=== PATIENT | male | born 1945 | race Caucasian/White ===

== ENCOUNTER → 2023-12-29 | Emergency (ER) | payer OTHER ==
[~2023-12-29] MED LIST: NA CHLORIDE 0.9% 1,000 ML ONE
[2023-12-29 14:05] LABS: Absolute Lymphocytes (CBC) 2.7 K/uL (0.7-4.9); Lymphocytes % 29.7 % (15.3-44.8); MCV 91.1 fL (80-100); MPV 8.8 fL (7.6-11.3); Platelets 235 thou/uL (152-406); RBC Red Blood Cell Count 4.17 M/uL (4.33-5.43)
[2023-12-29 14:29] LABS: Albumin 3.9 g/dL (3.4-5.0); Bilirubin Direct 0.4 mg/dL (0-0.2); Bilirubin Indirect, Calculated 0.5 mg/dL (0.2-0.8); Bilirubin Total 0.9 mg/dL (0.2-1.0); Magnesium 1.8 mg/dL (1.6-2.4); Potassium 3.3 mEq/L (3.5-5.1); Protein, Total 7.6 g/dL (6.4-8.2); Troponin High Sensitivity 14.2 pg/mL (<58.9)
--- NOTE | 2023-12-29 14:34 | RAD REPORT ---
EXAM DESCRIPTION: RAD - Chest Single View - 12/29/2023 2:26 pm CLINICAL HISTORY: syncope Chest pain. COMPARISON: No comparisons FINDINGS: Portable technique limits examination quality. The lungs are grossly clear. The heart is normal in size. No displaced fractures. IMPRESSION: No acute intrathoracic process suspected.
--- NOTE | 2023-12-29 15:13 | EDPHYS ---
Physician Documentation [facility] Name: Pablo Michele Age: 78 yrs Sex: Male : 1945 Arrival Date: 12/29/2023 Time: 13:41 Bed 4 Private MD: ED Physician Heath Cervantes HPI: 12/29 14:17 This 78 yrs old Male presents to ER via EMS with complaints of syncope. rt 14:17 Patient presents to the ED with a syncopal event. Patient was getting a routine blood rt draw at the [facility], when he came sweaty, lightheaded, nauseated and then briefly lost consciousness. Did not hit his head. States that he is back to baseline currently. Denies other acute complaints, symptoms are moderate severity, no other aggravating or alleviating factors.. Historical: - Allergies: 14:06 No Known Allergies; ld1 - PMHx: 14:06 Hypertensive disorder; Diabetes mellitus; ld1 - PSHx: 14:06 None; ld1 - Immunization history:: Adult Immunizations up to date. - Social history:: Smoking status: Patient denies any tobacco usage or history of. Patient/guardian denies using alcohol. ROS: 14:17 Constitutional: Negative for fever, chills, and weight loss, Cardiovascular: Negative rt for chest pain, palpitations, and edema, Respiratory: Negative for shortness of breath, cough, wheezing, and pleuritic chest pain, MS/Extremity: Negative for injury and deformity, Psych: Negative for depression, anxiety, suicide ideation, homicidal ideation, and hallucinations, 14:17 Abdomen/GI: Positive for nausea, Negative for abdominal pain, 14:17 Neuro: Positive for syncope, Negative for headache, Exam: 14:17 Constitutional: This is a well developed, well nourished patient who is awake, alert, rt and in no acute distress. Head/Face: Normocephalic, atraumatic. Chest/axilla: Normal chest wall appearance and motion. Nontender with no deformity. No lesions are appreciated. Cardiovascular: Regular rate and rhythm with a normal S1 and S2. No gallops, murmurs, or rubs. Normal PMI, no JVD. No pulse deficits. Respiratory: Lungs have equal breath sounds bilaterally, clear to auscultation and percussion. No rales, rhonchi or wheezes noted. No increased work of breathing, no retractions or nasal flaring. Abdomen/GI: Soft, non-tender, with normal bowel sounds. No distension or tympany. No guarding or rebound. No evidence of tenderness throughout. Skin: Warm, dry with normal turgor. Normal color with no rashes, no lesions, and no evidence of cellulitis. MS/ Extremity: Pulses equal, no cyanosis. Neurovascular intact. Full, normal range of motion. Neuro: Awake and alert, GCS 15, oriented to person, place, time, and situation. Cranial nerves II-XII grossly intact. Motor strength 5/5 in all extremities. Sensory grossly intact. Cerebellar exam normal. Normal gait. Psych: Awake, alert, with orientation to person, place and time. Behavior, mood, and affect are within normal limits. 14:17 ECG was reviewed by the Attending Physician. Vital Signs: 14:05 BP 169 / 88; Pulse 72; Resp 18; Temp 98.2(TE); Pulse Ox 100% on R/A; Weight 82 kg; ld1 Height 5 ft. 11 in. ; Pain 0/10; 14:45 BP 149 / 80; Pulse 72; Resp 16; Pulse Ox 97% on R/A; ld1 15:14 BP 144 / 70; Pulse 72; Resp 15; Pulse Ox 99% ; ko1 14:05 Body Mass Index 25.21 (82.00 kg, 180.34 cm) ld1 14:05 Pain Scale: Adult ld1 MDM: 13:43 Patient medically screened. rt 15:41 Differential Diagnosis Vasovagal syncope, volume depletion, dysrhythmia. Data reviewed: rt vital signs, nurses notes. Consideration of Admission/Observation Escalation of care including admission/observation considered. Clear vasovagal episode, patient was informed of findings of mildly elevated creatinine, this does not meet criteria for SAL, does not require mission to the hospital for this, he will follow-up as an outpatient for this.. I considered the following discharge prescriptions or medication management in the emergency department Medications were administered in the Emergency Department. See MAR. Independent interpretation of the following test(s) in the Emergency Department X-Ray: My interpretation is No consolidation seen on interpretation of x-ray images. Test considered but Not performed: CT: Denies head trauma, CT scan of the head not indicated. Care significantly affected by the following chronic conditions: Diabetes, Hypertension. Counseling: I had a detailed discussion with the patient and/or guardian regarding the historical points, exam findings, and any diagnostic results supporting the discharge/admit diagnosis, lab results, radiology results, the need for outpatient follow up, to return to the emergency department if symptoms worsen or persist or if there are any questions or concerns that arise at home. Response to treatment: the patient's symptoms have markedly improved after treatment. 12/29 13:44 Order name: Basic Metabolic Panel; Complete Time: 14:36 rt 12/29 13:44 Order name: CBC with Diff; Complete Time: 14:36 rt 12/29 13:44 Order name: LFT's; Complete Time: 14:36 rt 12/29 13:44 Order name: Magnesium; Complete Time: 14:36 rt 12/29 13:44 Order name: Troponin HS; Complete Time: 14:36 rt 12/29 13:44 Order name: XRAY Chest (1 view); Complete Time: 14:36 rt 12/29 13:44 Order name: EKG; Complete Time: 13:44 rt 12/29 13:44 Order name: Cardiac monitoring; Complete Time: 13:56 rt 12/29 13:44 Order name: EKG - Nurse/Tech; Complete Time: 13:59 rt 12/29 13:44 Order name: IV Saline Lock; Complete Time: 13:52 rt 12/29 13:44 Order name: Labs collected and sent; Complete Time: 13:52 rt 12/29 13:44 Order name: O2 Per Protocol; Complete Time: 13:52 rt 12/29 13:44 Order name: O2 Sat Monitoring; Complete Time: 13:52 rt EC:17 Rate is 76 beats/min. Rhythm is regular, 1st Degree Block with No ectopy. QRS [place] is rt Normal. [place] interval is normal. QRS interval is normal. QT interval is normal. No Q waves. No ST changes noted. Interpreted by me. Administered Medications: 13:55 Drug: NS 0.9% IV 1000 ml IV at 1 bolus Per protocol; 1000 mL bolus Route: IV; Rate: 1 ko1 bolus; Site: right forearm; 15:23 Follow up: IV Status: Completed infusion; IV Intake: 1000ml ko1 Disposition Summary: 12/29/23 15:12 Discharge Ordered Notes: Location: Home rt Problem: new rt Symptoms: are resolved rt Condition: Stable rt Diagnosis - Vasovagal syncope rt Followup: rt - With: Private Physician - When: 2 - 3 days - Reason: Discharge Instructions: - Discharge Summary Sheet rt - Syncope rt Forms: - Medication Reconciliation Form rt - Thank You Letter rt - Antibiotic Education rt - Prescription Opioid Use rt - Patient Portal Instructions rt - Leadership Thank You Letter rt Signatures: Dispatcher [employer] Nickie Verde RN RN ld1 Taylor Jha RN RN ko1 Heath Cervantes MD MD rt
--- NOTE | 2023-12-29 15:13 | ER ---
Nurse's Notes [facility] Name: Pablo Michele Age: 78 yrs Sex: Male : 1945 Arrival Date: 12/29/2023 Time: 13:41 Bed 4 Private MD: Diagnosis: Vasovagal syncope Presentation: 12/29 14:05 Chief complaint: EMS states: toned out to [place] clinic for syncopal episode after blood ld1 draw. Pt reports feeling "okay" at time of arrival to ER. Coronavirus screen: At this time, the client does not indicate any symptoms associated with coronavirus-19. Ebola Screen: No symptoms or risks identified at this time. Initial Sepsis Screen: Does the patient meet any 2 criteria? No. Patient's initial sepsis screen is negative. Does the patient have a suspected source of infection? No. Patient's initial sepsis screen is negative. Risk Assessment: Do you want to hurt yourself or someone else? Patient reports no desire to harm self or others. Onset of symptoms was December 29, 2023. 14:05 Method Of Arrival: EMS: [facility] ld1 14:05 Acuity: PAT 3 ld1 Triage Assessment: 14:06 General: Appears in no apparent distress. comfortable, Behavior is calm, cooperative, ld1 appropriate for age. Pain: Denies pain. EENT: No signs and/or symptoms were reported regarding the EENT system. Neuro: Level of Consciousness is awake, alert, obeys commands, Oriented to person, place, time, situation. Cardiovascular: Capillary refill < 3 seconds Patient's skin is warm and dry. Rhythm is sinus rhythm. Respiratory: Airway is patent Respiratory effort is even, unlabored. GI: Abdomen is flat, non-distended. : No signs and/or symptoms were reported regarding the genitourinary system. Derm: No signs and/or symptoms reported regarding the dermatologic system. Musculoskeletal: No signs and/or symptoms reported regarding the musculoskeletal system. Historical: - Allergies: 14:06 No Known Allergies; ld1 - PMHx: 14:06 Hypertensive disorder; Diabetes mellitus; ld1 - PSHx: 14:06 None; ld1 - Immunization history:: Adult Immunizations up to date. - Social history:: Smoking status: Patient denies any tobacco usage or history of. Patient/guardian denies using alcohol. Screenin:10 [facility] ED Fall Risk Assessment (Adult) History of falling in the last 3 months, ld1 including since admission No falls in past 3 months (0 pts). Abuse screen: Denies threats or abuse. Denies injuries from another. Nutritional screening: No deficits noted. Tuberculosis screening: No symptoms or risk factors identified. Assessment: 14:10 Reassessment: See triage assessment. ld1 Vital Signs: 14:05 BP 169 / 88; Pulse 72; Resp 18; Temp 98.2(TE); Pulse Ox 100% on R/A; Weight 82 kg; ld1 Height 5 ft. 11 in. ; Pain 0/10; 14:45 BP 149 / 80; Pulse 72; Resp 16; Pulse Ox 97% on R/A; ld1 15:14 BP 144 / 70; Pulse 72; Resp 15; Pulse Ox 99% ; ko1 14:05 Body Mass Index 25.21 (82.00 kg, 180.34 cm) ld1 14:05 Pain Scale: Adult ld1 ED Course: 13:43 Patient arrived in ED. ko1 13:43 Heath Cervantes MD is Attending Physician. rt 13:55 Taylor Jha, RENATE is Primary Nurse. ko1 13:55 Inserted saline lock: 22 gauge in right forearm, using aseptic technique. ko1 13:56 Basic Metabolic Panel Sent. ko1 13:56 CBC with Diff Sent. ko1 13:56 LFT's Sent. ko1 13:56 Magnesium Sent. ko1 13:56 Troponin HS Sent. ko1 14:06 Triage completed. ld1 14:06 Arm band placed on right wrist. EKG completed in triage. Results shown to MD. ld1 14:10 No provider procedures requiring assistance completed. ld1 14:10 Patient has correct armband on for positive identification. Placed in gown. Bed in low ld1 position. Call light in reach. Side rails up X2. phototypesetting equipment monitor on. Pulse ox on. NIBP on. Door closed. Noise minimized. Warm blanket given. 14:28 XRAY Chest (1 view) In Process Unspecified. EDMS 15:14 IV discontinued, intact, bleeding controlled, No redness/swelling at site. Pressure ko1 dressing applied. 15:14 Provided Education on: na. ko1 Administered Medications: 13:55 Drug: NS 0.9% IV 1000 ml IV at 1 bolus Per protocol; 1000 mL bolus Route: IV; Rate: 1 ko1 bolus; Site: right forearm; 15:23 Follow up: IV Status: Completed infusion; IV Intake: 1000ml ko1 Medication: 14:10 VIS not applicable for this client. ld1 Intake: 15:23 IV: 1000ml; Total: 1000ml. ko1 Outcome: 15:12 Discharge ordered by MD. rt 15:24 Discharged to home ambulatory, with family, ko1 15:24 Condition: improved 15:24 Discharge instructions given to patient, family, Instructed on discharge instructions, follow up and referral plans. Demonstrated understanding of instructions, follow-up care, 15:24 Patient left the ED. ko1 Signatures: Dispatcher [employer] EDMS Nickie Cadet RN RN ld1 Taylor Jha, RENATE RN ko1 Heath Cervantes MD MD rt
[2023-12-30 00:31] VITALS: TEMP 98.2
[2023-12-30 00:52] VITALS: BP 144/70; O2SAT 99
== END ==
LOC: ER 13:41
DX: R55 Syncope and collapse (principal); R11.0 Nausea
CPT/HCPCS: 85025; 80048; 36415; 83735; 80076; 84484; 71045; J7030; 93005